=== PATIENT | female | born 1950 | race Caucasian/White ===

== ENCOUNTER → 2016-10-14 | Outpatient (CLI) | payer OTHER ==
--- NOTE | 2016-10-14 14:50 | CPEKG ---
Heart Rate: 76 RR Interval: 789 P-R Interval: 180 QRSD Interval: 84 QT Interval: 392 QTC Interval: 441 P [place]: 62 QRS [place]: 26 T Wave [place]: 39 EKG Severity - ABNORMAL ECG - EKG Impression: SINUS RHYTHM EKG Impression: CONSIDER ANTEROSEPTAL INFARCT Electronically Signed By: Amrit Urban 14-Oct-2016 15:02:45
== END ==
LOC: FCP 14:33
PROVIDERS: ATTEND Family Medicine
DX: R07.89 Other chest pain (principal)

== ENCOUNTER 2016-11-15 22:45 | Emergency (ER) | payer OTHER ==
[2016-11-15 23:12] VITALS: RESP 16
[2016-11-15] MEDS ORDERED: TDAP ADULT 0.5 ML INJ (BOOSTRIX) IM ONE (23:18)
--- NOTE | 2016-11-15 23:23 | EDPHY ---
H & P HPI/ROS: CC: mechanical fall with facial injury and left wrist pain HPI: This 66-year-old female with no significant past medical history with the exception of bilateral hip replacements presents to the emergency department today after tripping over a hose while walking her dog. She fell onto her outstretched left wrist and also hit her face. She was wearing glasses at the time and sustained an abrasion over the bridge of her nose and she feels like her mouth is not lining up appropriately. Her wrist feels broken. She did not lose consciousness. She denies neck or back pain. She denies other preceding symptoms such as dizziness or lightheadedness, headache, chest pain, shortness of breath, abdominal pain, numbness, tingling, or weakness. She has not been ill recently. REVIEW OF SYSTEMS: Constitutional: No fever, no chills. Eyes: No discharge. ENT: No sore throat. Respiratory: No cough, no shortness of breath. Cardiac: No chest pain, no palpitations. Gastrointestinal: No abdominal pain, no vomiting. Genitourinary: No hematuria. Musculoskeletal: No back pain. Skin: No rashes. Neurological: No headache. Past Medical/Surgical History: Past medical history: Denied Past surgical history: Bilateral hip replacements, hysterectomy, bladder sling , left wrist surgery Family history: Mother at age 93 and had diabetes; father in his 80s and had Alzheimer's The patient does not like to take Aleve as it causes her headache, she states she is allergic to artichokes Social History: The patient states she smokes an occasional cigarette and has an occasional beer. She also has occasional edible marijuana. Smoking Status: Current every day smoker Physical Exam: General Appearance: Alert, mild distress. Eyes: Pupils equal and round no pallor or injection. ENT, Mouth: Contusion and abrasion/superficial laceration to the bridge of her nose. The patients right central incisor enamel is abraded and left lateral incisor is chipped through the enamel and dentin. No exposure of pulp. No avulsion or subluxation. There is no obvious malocclusion. There is a 1 cm laceration on the inner upper lip mucosa bruising and STS to the outer upper lip. The laceration is not through and through. Respiratory: There are no retractions, lungs are clear to auscultation. Cardiovascular: Regular rate and rhythm. Gastrointestinal: Abdomen is soft and nontender, no masses, bowel sounds normal. Neurological: Awake and alert, sensory and motor exams grossly normal. Skin: Warm and dry, no rashes. Musculoskeletal: Neck and back are supple nontender. Shoulders, clavicles, elbows, right wrist and lower extremities are normal without tenderness or deformity. The left wrist is tender to palpation with soft tissue swelling. No snuff box tenderness. No open wounds. Psychiatric: Patient is oriented X 3, there is no agitation. DIFFERENTIAL DIAGNOSIS: After history and physical exam differential diagnosis was considered for but not limited to: mechanical fall, facial bone fracture, dental fracture, wrist fracture. No evidence of intracranial abnormality, syncope, or infectious process. Constitutional: Initial Vital Signs Temperature (C) 98.4 F 11/15/16 22:45 Heart Rate 78 11/15/16 22:45 Respiratory Rate 16 11/15/16 22:45 Blood Pressure 118/68 11/15/16 22:45 O2 Sat (%) 92 11/15/16 22:45 O2 Delivery Mode Room Air Allergies/Adverse Reactions: cortisone Allergy (Verified 11/15/16 23:06) ALEVE Allergy (Uncoded 02/19/15 17:48) Home Medications: Medication Instructions Recorded Aspirin 02/19/15 Clonidine 02/19/15 Estradiol [Estrace Vaginal (*)] 11/15/16 Vitamins 11/15/16 Medical Decision Making - Diagnostics Imaging: Discussed imaging studies w/ turf sales person Radiologist (No acute fracture on facial CT; distal left radius fracture, intra-articular; ) ED Course/Re-evaluation: The patient was seen and examined and vital signs reviewed. Her wounds were cleansed She has a superficial laceration on the bridge of her nose, as well as bruising/hematoma and superficial lacerations on her upper lip as well as soft tissue swelling. There is a slightly larger laceration on the inner mucosa of the upper lip that should heal fine without suturing. The patient's tetanus was updated. Facial bone CT revealed no acute fracture however there was artifact from dental fillings. The patient is advised to follow up with her dentist, Dr. Homer Hanson at [facility] this week. She should not bite into any hard foods and should steer clear of foods like potato chips or anything that could get stuck in the laceration of the mucosa. She was advised to rinse her mouth frequently with dilute saltwater. Her left wrist x-ray revealed a distal radial fracture at the metaphysis which extends into the intra -articular space but is nondisplaced. There is some widening of the scaphoid lunate joint is well which may suggest a ligamentous injury. Her x-ray was discussed with the orthopedic surgeon environmental remediation consultant, Dr. Lundy. He requested a sugar -tong splint be placed and follow up in the office this week. The splint was placed by the public health technologist and CMS was intact by my exam s/p application. She was given a take-home pack of [place]. - Data Points Medications Given: Discontinued Medications Hydrocodone Bitart/Acetaminophen ([place] 5/325) 2 tab PO EDNOW ONE Stop: 11/16/16 00:07 Last Admin: 11/16/16 00:10 Dose: 2 tab Hydrocodone Bitart/Acetaminophen ([place] 5/325mg Prepack#6) 1 btl TAKEHOME EDNOW ONE Stop: 11/16/16 00:21 Last Admin: 11/16/16 00:55 Dose: 1 btl Diphtheria/Tetanus/Acell Pertussis (Boostrix) 0.5 ml IM .ONCE ONE Stop: 11/15/16 23:19 Last Admin: 11/16/16 00:11 Dose: 0.5 ml Departure - Departure Disposition: Home, Routine, Self-Care Clinical Impression: Left wrist fracture, Facial injury, Fall from standing, Dental injury Condition: Fair Instructions: Hydrocodone/Acetaminophen (By mouth), Wrist Fracture in Adults ( ED), Acute Dental Trauma (ED), Splint Care (ED), Facial Laceration (ED) Additional Instructions: Do not bite into any hard foods or eat foods such as potato chips that could get stuck in the laceration inside of her upper lip. Rinse your mouth frequently with warm, dilute saltwater. See your dentist, Dr. Hanson, early this coming week for further evaluation including possible dental x-rays and repair of your chipped teeth. Call the orthopedic surgeon listed on your discharge paperwork, Dr. Lundy, first thing Thursday morning to schedule an appointment. Tell them UR any ER follow-up for a wrist fracture. Return to the ED if any further problems or concerns. Referrals: NONE *PRIMARY CARE P,. [Primary Care Provider] - As per Instructions Dave Lundy MD [Medical Doctor] - 5-7 days, call for appt. (Call first thing Thursday morning to arrange follow up.)
[2016-11-16] MEDS ORDERED: HYDROCODONE/APAP 5/325 TAB PO ONE (00:06)
[2016-11-16] MEDS ORDERED: HYDROCOD/APAP 5/325 PREPACK#6 BTL TAKEHOME ONE (00:20)
[2016-11-16 01:05] VITALS: BP 121/78; PULSE 81; TEMP 97.9; O2SAT 94
== END 2016-11-16 01:04 | disposition home or self-care (01) ==
LOC: CED 22:45
DX: S52.572A Other intraarticular fracture of lower end of left radius, initial encounter for closed fracture (principal); S09.93XA Unspecified injury of face, initial encounter; F17.200 Nicotine dependence, unspecified, uncomplicated; Z79.82 Long term (current) use of aspirin; Z23 Encounter for immunization; W01.198A Fall on same level from slipping, tripping and stumbling with subsequent striking against other object, initial encounter; Y99.8 Other external cause status; Y93.01 Activity, walking, marching and hiking
CPT/HCPCS: 70486-PO; 73110-PO; A4565

== ENCOUNTER → 2016-11-20 | Outpatient (CLI) | payer OTHER | LOC: CIMAGING 11:08 | PROVIDERS: ATTEND Orthopaedic Surgery Hand Surgery | DX: S52.572A Other intraarticular fracture of lower end of left radius, initial encounter for closed fracture (principal); Z98.890 Other specified postprocedural states | CPT/HCPCS: 73200-PO ==

== ENCOUNTER 2018-05-22 11:17 | Emergency (ER) | payer OTHER ==
[2018-05-22 11:23] VITALS: BP 102/73
--- NOTE | 2018-05-22 11:49 | EDPHY ---
H & P Stated Complaint: L upper chest pain since ~5 am with mild radiation into neck Time Seen by Provider: 05/22/18 11:49 HPI/ROS: CHIEF COMPLAINT: 2 episodes of sharp chest pain HISTORY OF PRESENT ILLNESS: The patient presents to the ED after she has experienced 2 episodes of sharp left-sided chest pain over the past 2 days. Both of the episodes occurred at rest. The patient exercises frequently without symptoms of chest pain or shortness of breath. The patient has no history of coronary artery disease. She has no risk factors for coronary artery disease. The patient did have a comprehensive cardiac evaluation several years ago with a negative stress test. The patient denies any asymmetric calf pain or swelling. She denies pleuritic chest pain. The patient is currently asymptomatic. The patient denies any additional complaints of abdominal pain, nausea, vomiting or diarrhea. She has no acute neurologic complaints. REVIEW OF SYSTEMS: A comprehensive 10 point review of systems is otherwise negative aside from elements mentioned in the history of present illness. Source: Patient - Personal History Tetanus Vaccine Date: < 10 YEARS - Medical/Surgical History Hx Asthma: No Hx Chronic Respiratory Disease: No Hx Diabetes: No Hx Cardiac Disease: No Hx Renal Disease: No Hx Cirrhosis: No Hx Alcoholism: No Hx HIV/AIDS: No Hx Splenectomy or Spleen Trauma: No Other PMH: HYSTERECTOMY, BLADDER SLING, ANTWAN HIP REPLACEMENT. L WRIST - Social History Smoking Status: Light smoker - Physical Exam Exam: General Appearance: Alert, no distress Eyes: Pupils equal and round no pallor or injection ENT, Mouth: Mucous membranes moist Respiratory: There are no retractions, lungs are clear to auscultation Cardiovascular: Regular rate and rhythm Gastrointestinal: Abdomen is soft and nontender, no masses, bowel sounds normal Neurological: A&O, normal motor function, normal sensory exam, normal cranial nerves Skin: Warm and dry, no rashes Musculoskeletal: Neck is supple nontender Extremities: symmetrical, full range of motion Constitutional: Initial Vital Signs Temperature (C) 36.4 C 05/22/18 11:19 Heart Rate 77 05/22/18 11:19 Respiratory Rate 16 05/22/18 11:19 Blood Pressure 102/73 05/22/18 11:19 O2 Sat (%) 97 05/22/18 11:19 O2 Delivery Mode Room Air Allergies/Adverse Reactions: cortisone Allergy (Verified 11/15/16 23:06) ALEVE Allergy (Uncoded 02/19/15 17:48) Home Medications: Medication Instructions Recorded Estradiol 05/22/18 Medical Decision Making - Diagnostics EKG Interpretation: EKG: Complete interpretation has been separately recorded in the [facility] archive. Summary impression: Sinus rhythm, rate 70 ED Course/Re-evaluation: The patient has no risk factors for cardiac disease and had a negative treadmill stress test performed within the past 2 years. She comes in after 2 episodes of sharp brief self-limited chest pain over the past 2 days. All in all this is an atypical chest pain syndrome. The patient is well-appearing in the ED. She has normal pulses noted in all 4 extremities. There is no clinical suggestion of pulmonary embolism or aortic dissection. Workup consisted of an EKG which demonstrates no evidence of ischemia and a negative troponin. This point time I clinical suspicion for acute coronary syndrome is low. I have told the patient that is impossible for us to fully evaluate and rule out coronary artery disease. The patient prefers to go home and consider follow-up with Cardiology for any ongoing mild symptoms. The patient has been advised to return to the ED sooner for markedly worsening symptoms, exertional symptoms, significant dyspnea or other concerns. Differential Diagnosis: Differential diagnosis considered includes acute coronary syndrome, pericarditis , zoster, myofascial strain - Data Points Laboratory Results: 05/22/18 11:50 POC Troponin I 0.02 ng/mL ng/mL (0.00-0.08) Point of Care Test Results: Chemistry 05/22/18 11:50 POC Troponin I 0.02 ng/mL ng/mL (0.00-0.08) Departure - Departure Disposition: Home, Routine, Self-Care Clinical Impression: Chest pain Condition: Good Instructions: Chest Pain (ED) Additional Instructions: 1. The testing in the emergency department today demonstrates no evidence of a heart attack or cardiac condition. 2. I would recommend following up with your primary care provider for recheck this week. Based upon her symptoms I have a low suspicion for underlying coronary artery disease. It is been several years since your last stress test. I will defer to your primary care provider to see if they feel another test is indicated. 3. Return to the ED immediately for any worsening symptoms, exertional chest pain, difficulty breathing, high fever or other concerns. Referrals: Jeni Schmid [Primary Care Provider] - As per Instructions
--- NOTE | 2018-05-22 11:51 | CPEKG ---
Test Reason : OPEN Blood Pressure : / mmHG Vent. Rate : 070 BPM Atrial Rate : 070 BPM P-R Int : 175 ms QRS Dur : 091 ms QT Int : 395 ms P-R-T Axes : 064 019 053 degrees QTc Int : 427 ms Sinus rhythm Confirmed by Wilman Bullock ([id number]) on 05/22/2018 11:50:25 AM Referred By: PHYSICIAN ED Confirmed By:Wilman Bullock
== END 2018-05-22 12:39 | disposition home or self-care (01) ==
DX: R07.89 Other chest pain (principal)
CPT/HCPCS: 84484-ER